=== PATIENT | female | born 1985 | race African-American/Black ===

== ENCOUNTER 2016-10-30 14:58 | Emergency (ER) | END 2016-10-30 16:47 | disposition home or self-care (01) | DX: I88.9 Nonspecific lymphadenitis, unspecified (principal); B34.9 Viral infection, unspecified | CPT/HCPCS: 96372; J1885; Z7502 ==

== ENCOUNTER 2017-02-04 11:29 | Emergency (ER) | payer SELFPAY ==
[~2017-02-04] VITALS: Ht 157.5 cm; Wt 138.0 kg
[~2017-02-04 11:29] MED LIST: AZIT250T94 PO; NAPR-260 PO; ONDA4TAB14 PO
[2017-02-04 11:30] VITALS: Ht 157.5 cm; Wt 138.0 kg
== END 2017-02-04 16:23 | disposition left against medical advice (07) ==
LOC: FTE 11:29
DX: Z53.21 Procedure and treatment not carried out due to patient leaving prior to being seen by health care provider (principal)